=== PATIENT | male | born 1940 | race Caucasian/White ===

== ENCOUNTER 2021-08-11 04:22 | Day surgery (SDC) | payer OTHER ==
[2021-08-09 16:58] VITALS: BMI 26.4
[~2021-08-11 04:22] MED LIST: ACETAMINOPHEN 325 MG TABLET (FP) PO PRN
[2021-08-11] MEDS ORDERED: TROPICAMIDE 1% OPHTH SOLN 15 ML BOTTLE ONE (06:22)
[2021-08-11] MEDS ORDERED: CIPROFLOXACIN 0.3% EYE DROPS 5 ML BOTTLE ONE (06:22)
[2021-08-11] MEDS ORDERED: KETOROLAC TROMETHAMINE 0.5% EYE DROP 1 DROP DROPS ONE (06:22)
[2021-08-11] MEDS ORDERED: DICLOFENAC SODIUM 0.1% OPHTHALMIC 2.5ML BOTTLE ONE (06:22)
[2021-08-11] MEDS ORDERED: PHENYLEPHRINE 2.5% OPTHALMIC DROP BOTTLE ONE (06:23)
[2021-08-11] MEDS ORDERED: TROPICAMIDE 1% OPHTH SOLN 15 ML BOTTLE OP SCH (06:45)
[2021-08-11] MEDS ORDERED: CIPROFLOXACIN HCL 0.3% OPHTH 2.5ML BOTTLE OP SCH (06:45)
[2021-08-11] MEDS ORDERED: DICLOFENAC SODIUM 0.1% OPHTHALMIC 2.5ML BOTTLE OP SCH (06:45)
[2021-08-11] MEDS ORDERED: PHENYLEPHRINE 2.5% OPHTH SOLN 15 ML BOTTLE OP SCH (06:45)
[2021-08-11] MEDS ORDERED: KETOROLAC TROMETHAMINE 0.5% EYE DROP 1 DROP DROPS OP SCH (06:45)
[2021-08-11] MEDS ORDERED: LIDOCAINE HCL/PF 2% SDV 5ML VIAL ONE ×2 (07:03→07:11)
[2021-08-11] MEDS ORDERED: KETOROLAC TROMETHAMINE 30 MG/1 ML VIAL ONE (07:03)
[2021-08-11] MEDS ORDERED: PROPOFOL 20 ML ONE ×2 (07:04→07:26)
[2021-08-11] MEDS ORDERED: ROCURONIUM BROMIDE 50 MG/5 ML SYRINGE ONE (07:04)
[2021-08-11] MEDS ORDERED: TOBRAMYCIN/DEXAMETHASONE OPHTH. OINTMENT 1 TUBE ONE (07:10)
[2021-08-11] MEDS ORDERED: EPINEPHrine/PF 1 MG/1 ML (1:1,000) AMPULE ONE (07:10)
[2021-08-11] MEDS ORDERED: LIDOCAINE HCL/PF 1% SDV 5ML VIAL ONE (07:11)
[2021-08-11] MEDS ORDERED: BSS (NA/CA/MG/K) BALANCED SALT SOLUTION OPHTH SOLN 15 ML BOTTLE ONE (07:11)
[2021-08-11] MEDS ORDERED: BUPIVACAINE HCL/PF 0.75% 10 ML VIAL ONE (07:11)
[2021-08-11] MEDS ORDERED: POVIDONE-IODINE 5% OPHTHALMIC PREP 30 ML SOLUTION ONE (07:11)
[2021-08-11] MEDS ORDERED: LIDOCAINE HCL 2% (50ML VIAL) NR ONE ×3 (07:21→07:45)
[2021-08-11] MEDS ORDERED: BUPIVACAINE HCL/PF 0.75% 10 ML VIAL NR ONE ×3 (07:22→07:45)
[2021-08-11] MEDS ORDERED: POVIDONE-IODINE 5% OPHTHALMIC PREP 30 ML SOLUTION OS ONE ×3 (07:22→07:49)
[2021-08-11] MEDS ORDERED: CHONDROITIN SU A/HYALUR SOD 1 KIT IO ONE ×3 (07:23→07:57)
[2021-08-11] MEDS ORDERED: MIDAZOLAM HCL 2 MG/2 ML SINGLE DOSE VIAL ONE (07:23)
[2021-08-11] MEDS ORDERED: BSS (NA/CA/MG/K) BALANCED SALT SOLUTION OPHTH SOLN 15 ML BOTTLE OS ONE ×2 (07:23→07:52)
[2021-08-11] MEDS ORDERED: GLYCOPYRROLATE 0.2 MG/1 ML VIAL ONE (07:23)
[2021-08-11] MEDS ORDERED: EPINEPHrine/PF 1 MG/1 ML (1:1,000) AMPULE SQ ONE ×2 (07:23→08:05)
[2021-08-11] MEDS ORDERED: TOBRAMYCIN/DEXAMETHASONE OPHTH. OINTMENT 1 TUBE OS ONE ×2 (07:24→08:32)
[2021-08-11] MEDS ORDERED: ACETYLCHOLINE 1:100 INTRA-OCUL 20 MG/2 ML KIT IO ONE (08:29)
[2021-08-11] MEDS ORDERED: ONDANSETRON 4 MG/2 ML VIAL IVPUSH PRN (09:02)
[2021-08-11 09:09] VITALS: TEMP 97.1
[2021-08-11 09:13] VITALS: BP 130/70; PULSE 66
[2021-08-11] MEDS ORDERED: LACTATED RINGERS SOLUTION 1,000 ML IV SCH (09:15)
== END 2021-08-11 09:48 | disposition home or self-care (01) ==
LOC: JASU-SURG 04:22
PROVIDERS: ATTEND Ophthalmology
PROC: 08RK3JZ Replacement of Left Lens with Synthetic Substitute, Percutaneous Approach (ICD-10-PCS; principal; 2021-08-11 07:30)
DX: H25.092 Other age-related incipient cataract, left eye (principal); H57.03 Miosis
CPT/HCPCS: 82962